=== PATIENT | male | born 1990 | race Caucasian/White ===

== ENCOUNTER 2017-08-06 10:57 | Emergency (ER) | payer MEDICAID ==
[2017-08-06] MEDS: IBUPROFEN 600 MG TAB PO (11:24)
== END 2017-08-06 11:27 | disposition home or self-care (01) ==
LOC: E/R 10:57
DX: J02.9 Acute pharyngitis, unspecified (principal); J45.909 Unspecified asthma, uncomplicated; Z87.891 Personal history of nicotine dependence
CPT/HCPCS: 99283; Z7502